=== PATIENT | female | born 1955 | race Caucasian/White ===

== ENCOUNTER 2018-02-03 17:57 | Emergency (ER) | payer OTHER ==
--- OUTSIDE RECORDS SUMMARY | 2018-02-03 18:05 | XMS REPORT | Continuity of Care Document ---
:1955 External Reference #:[id number] Author Name Brittany Choi PA Address [address] [place] [address] Care Team Providers Name Role Phone Ramon Rico M.D. Care Team Information Human Resources Specialist Unavailable Payers Type Date Identification Numbers Payment Provider Subscriber Effective: Policy Number: [id number] Jonas Brandon 2016 PayID: [id number] [address] [place] [address] Advance Directives Description No Information Available Problems Date Description Provider Status Onset: 03/21/2011 Arthropathy Brittany Choi PA Active Onset: 03/21/2011 Hypothyroidism Brittany Choi PA Active Onset: 03/21/2011 Essential hypertension Brittany Choi PA Active Onset: 03/21/2011 Hyperlipidemia Brittany Choi PA Active Onset: 03/21/2011 Obesity Ramon Rico M.D. 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 Pure hypercholesterolemia Brittany Choi PA Active Family History Date Family Member(s) Problem(s) Comments Father due to Aneurysm () Mother due to Brain cancer () Social History Type Date Description Comments Sex Unknown Marital Status Has been 2 times Lives With Spouse Lives With Son Pets 1 dog Work Status 09/2014 Disabled ETOH Use Rarely consumes alcohol Tobacco Use Reviewed: 12/31/15 Patient has never smoked 12/19/13 Recreational Drug Use Never Used Drugs Smoking Status Reviewed: 01/25/18 Patient has never smoked 12/19/13 Allergies, Adverse Reactions, Alerts Description No Known Drug Allergies Medications Medication Date Status Form Strength Qnty SIG Indications Ordering Provider Benzonatate 01/11/ Active Capsules 200mg 30caps one three R05 Ramon 2018 times a [facility] day as os, M.D. needed cough Levothyroxine 07/25/ Active Tablets 100mcg 30tabs 1 by mouth E03.9 Ramon Sodium 2018 every day [facility] os, M.D. Atorvastatin 04/26/ Active Tablets 80mg 90tabs take 1 Ramon Calcium 2012 tablet by [facility] mouth at os, M.D. bedtime Aspirin Adult 03/21/ Active Tablets DR 81mg 1 po qd Ramon Low Strength 2010 [place] os, M.D. Lisinopril-Hydr 03/21/ Active Tablets 20-12.5mg 90tabs take 1 Ramon ochlorothiazide 2010 tablet by [facility] mouth os, M.D. twice a day Azithromycin 01/05/ Hx Tablets 250mg 6tabs 2 now and J06.9 Ramon 2018 - 1 daily x [facility] 01/11/ 4 days os, M.D. 2018 Levothyroxine 07/25/ Hx Solution 100mcg 1 by mouth E03.9 Ramon Sodium 2018 - Rec every day [facility] 07/25/ os, M.D. 2018 Levothyroxine 07/25/ Hx Tablets 100mcg 90tabs take 1 E03.9 Ramon Sodium 2018 - tablet by [place] 01/11/ mouth once os, M.D. 2018 daily Levothyroxine 05/25/ Hx Tablets 88mcg 30tabs 1 by mouth E03.9 Ramon Sodium 2018 - every day [facility] 07/25/ os, M.D. 2018 Augmentin 03/15/ Hx Tablets 875-125mg 20tabs one twice J06.9 Ramon 2016 - a day [place] 01/10/ withfood os, M.D. 2017 Tylenol With 03/15/ Hx Tablets 300-30mg 28tabs one tablet R05 Ramon Codeine #3 2016 - 4 times a [place] 01/10/ day as os, M.D. 2017 needed for pain/cough Amoxicillin 03/07/ Hx Capsules 500mg 21caps 1 by mouth J06.9 Ramon 2015 - three [facility] 03/15/ times a os, M.D. 2015 day Colcrys 02/04/ Hx Tablets 0.6mg 3tabs 2 tablets M10.9 Ramon 2014 - initially [place] 03/07/ and then os, M.D. 2015 one tablet one hour later Amoxicillin/Cla 08/01/ Hx Tablets 875-125mg 20tabs 1 by mouth 461.0 Ramon sabillon 2014 - twice a [facility] Potassium 12/22/ day with os, M.D. 2014 food Tramadol HCL 10/30/ Hx Tablets 50mg 100tab take 1-2 Ramon 2013 - s tablets by [facility] 12/19/ mouth up os, M.D. 2014 to 4 times daily as needed for pain Vitamin D 10/28/ Hx 00136Mb 4units onbe q Ramon 2013 - weekly [facility] 12/19/ os, M.D. 2013 Tylenol With 10/22/ Hx 30unit 1 to 2 724.3 Ramon Codeine #3 2014 - s tablets [facility] 12/19/ every 4-6 os, M.D. 2014 hours for as needed for pain Klonopin 10/22/ Hx Tablets 1mg 2tabs one tablet 724.5 Ramon 2013 - hour prior [facility] 12/19/ to os, M.D. 2013 procedure and one tablet if needed prior to procedure Levothyroxine 10/22/ Hx Tablets 75mcg 90tabs take 1 E03.9 Ramon Sodium 2013 - tablet [facility] 05/25/ daily os, M.D. 2017 Ultram 07/23/ Hx Tablets 50mg 30tabs 1 to 2 848.8 Ramon 2013 - tablets [facility] 10/22/ twice a os, M.D. 2013 day or three times a day as needed pain Colcrys 05/13/ Hx Tablets 0.6mg 3tabs two 719.46 Ramon 2013 - tablets at [facility] 10/22/ onset of os, M.D. 2013 gout attack then repeat one pill one hour later Vitamin D 05/13/ Hx Capsules 21688Smdm 4caps take 1 790.6 Ramon 2013 - capsule by [facility] 07/14/ mouth once os, M.D. 2014 weekly Levothyroxine 05/13/ Hx Tablets 75mcg 30tabs 1 po qd 244.9 Ramon Sodium 2013 - [place] 10/22/ os, M.D. 2013 Amoxicillin 04/17/ Hx Tablets 875mg 20tabs 1 po bid 461.9 Ramon 2012 - [place] 05/07/ os, M.D. 2013 Naproxen 07/10/ Hx Tablets 500mg 60tabs Take One Ramon 2011 - Tablet By [facility] 07/14/ Mouth os, M.D. 2014 Twice A Day Tylenol With 05/30/ Hx #3 25unit one to two 786.2 Ramon Codeine #3 2012 - s tablets [facility] 05/07/ every six os, M.D. 2014 hour s as needed for cough and headache Mobic 03/21/ Hx Tablets 15mg 15tabs one qd Ramon 2010 - with food [facility] 05/07/ os, M.D. 2013 Amoxicillin 03/21/ Hx Tablets 875mg 20tabs 1 po bid Ramon 2010 - [place] 05/07/ os, M.D. 2013 Lipitor 03/21/ Hx Tablets 40mg 90tabs Take One Ramon 2010 - Tablet By [facility] 12/19/ Mouth os, M.D. 2013 Every Day Levothyroxine 03/21/ Hx Tablets 50mcg 30tabs Take One Ramon Sodium 2010 - Tablet By [place] 12/19/ Mouth os, M.D. 2013 Every Day Lisinopril-Hydr 03/21/ Hx Tablets 20-12.5mg 90tabs take one Ramon ochlorothiazide 2010 - tablet by [place] 01/11/ mouth os, M.D. 2017 twice a day Immunizations CPT Code Status Date Vaccine Reaction Lot # 09059 Given 01/10/2017 Influenza risk & benefits Flu Vac [id number] Vac,Quad,Split=>3 discussed Yrs 52807 Given 12/31/2015 Influenza risk & benefits flu Vac,Quad,Split=>3 discussed [id number] Yrs 87328 Given 12/31/2015 Prevnar 13 risk & benefits Prevnar 13 [id number] discussed 90238 Given 12/22/2014 Influenza risk & benefits Flu/vac>[id number] Vac,Quad,Split=>3 discussed Yrs 59472 Given 01/07/2009 Flu Triv Old Code 18499 Given 03/22/1999 Td- Toxoids Absorbed - Adult Vital Signs Date Vital Result Comment 01/11/2018 9:48am Weight 217.00 lb BP Systolic 118 mmHg BP Diastolic 82 mmHg Height 61 inches 5'1" Heart Rate 99 /min Body Temperature 98.7 F O2 % BldC Oximetry 93 % Respiratory Rate 18 /min BMI (Body Mass Index) 41.0 kg/m2 01/05/2018 9:33am Weight 217.00 lb BP Systolic 142 mmHg BP Diastolic 70 mmHg Heart Rate 112 /min Body Temperature 99.2 F O2 % BldC Oximetry 95 % room air Respiratory Rate 22 /min 08/14/2017 10:03am Weight 224.00 lb BP Systolic 134 mmHg BP Diastolic 80 mmHg 05/17/2017 10:39am Weight 223.00 lb BP Systolic 130 mmHg BP Diastolic 78 mmHg 03/15/2016 1:37pm Weight 219.00 lb BP Systolic 130 mmHg BP Diastolic 80 mmHg Body Temperature 99.2 F 03/07/2016 10:46am Weight 220.50 lb BP Systolic 140 mmHg BP Diastolic 90 mmHg Height 98.4 inches 8'2.40" BMI (Body Mass Index) 16.0 kg/m2 12/31/2015 9:33am Weight 220.00 lb BP Systolic 144 mmHg BP Diastolic 80 mmHg Height 59.8 inches 4'11.80" Heart Rate 70 /min Body Temperature 98.0 F Respiratory Rate 12 /min BMI (Body Mass Index) 43.2 kg/m2 02/04/2015 10:15am Weight 210.00 lb BP Systolic 112 mmHg BP Diastolic 68 mmHg 08/01/2014 9:42am Weight 210.00 lb BP Systolic 118 mmHg BP Diastolic 70 mmHg Body Temperature 99.4 F 07/14/2014 9:16am Weight 210.00 lb BP Systolic 112 mmHg BP Diastolic 70 mmHg 12/19/2013 11:47am Weight 206.00 lb BP Systolic 110 mmHg BP Diastolic 60 mmHg Height 59.6 inches 4'11.60" Heart Rate 70 /min Body Temperature 98.0 F Respiratory Rate 14 /min BMI (Body Mass Index) 40.8 kg/m2 10/22/2013 11:40am Weight 211.00 lb BP Systolic 118 mmHg BP Diastolic 74 mmHg 07/23/2013 10:26am Weight 216.00 lb BP Systolic 120 mmHg BP Diastolic 80 mmHg 05/13/2013 9:23am Weight 214.00 lb BP Systolic 126 mmHg BP Diastolic 80 mmHg Height 59.8 inches 4'11.80" BMI (Body Mass Index) 42.1 kg/m2 05/07/2013 11:22am Weight 218.00 lb BP Systolic 120 mmHg BP Diastolic 70 mmHg 04/17/2012 9:46am Weight 215.00 lb Body Temperature 98.8 F 05/30/2011 2:17pm Weight 212.00 lb BP Systolic 120 mmHg BP Diastolic 70 mmHg Body Temperature 98.3 F 03/21/2011 8:57am Weight 205.00 lb BP Systolic 118 mmHg BP Diastolic 78 mmHg Body Temperature 98.5 F Results Test Date Facility Test Result H/L Range Note Laboratory test 07/12/2017 [facility] TSH (Thyroid 7.21 mcIU/mL High 0.34-5.60 finding [phone] Stim Horm) Basic Metabolic 05/17/2017 [facility] Glucose 117 mg/dL High 74- 106 1 Panel [phone] BUN 21 mg/dL High 7-18 Creatinine 1.1 mg/dL 0.6-1.3 Glom Filtration Rate, Estimate 54 mL/min >60 If >60 mL/min >60 2 BUN/Creat 19.0 ratio Sodium 140 mmol/L 136-145 Potassium 4.0 mmol/L 3.5-5.1 Chloride 104 mmol/L 98-107 Carbon Dioxide 28 mmol/L 21-32 Anion Gap 8 mEq/L 8-16 Calcium 9.1 mg/dL 8.5-10.1 CBC No Diff 05/17/2017 [facility] White Blood Count 8.7 K/uL 3.1- 10.7 [phone] Red Blood Count 3.97 M/uL 3.90-5.40 Hemoglobin 12.6 gm/dL 11.6-15.8 Hematocrit 37.0 % 36.0-46.1 Mean Cell Volume 93.2 fl 80.9-99.0 Mean Corpuscular HGB 31.7 pg 25.9-32.7 Mean Corpuscular HGB Conc 34.1 g/dL 30.8-34.3 Platelet Count 261 K/uL 155-360 Red Cell Distri Width %CV 13.9 % 11.7-14.4 Mean Platelet Volume 10.4 fL 8.9-12.4 Lipid Profile 05/17/2017 [facility] Cholesterol 178 mg/dL <200 3 (Trig/Chol/HDL) [phone] Triglycerides 168 mg/dL High <150 4 HDL Cholesterol 41 mg/dL >40 5 LDL-Cholesterol 103 mg/dL < 100 6 Liver Function Panel 05/17/2017 [facility] Total Protein 8.0 g/dL 6.4-8.2 [phone] Albumin 3.4 g/dL 3.4-5.0 Globulin 4.6 g/dL High 1.9-4.3 Alb/Glob 0.7 ratio Bilirubin,Total 0.4 mg/dL 0.2-1.0 Bilirubin,Direct < 0.1 mg/dL 0.0-0.2 Bilirubin,Indirect 0.3 mg/dL 0.0-0.9 Sgot/Ast 25 U/L 15-37 SGPT/Alt 26 U/L 12-78 Alkaline Phosphatase 143 U/L High 45-117 Laboratory test 05/17/2017 [facility] Thyroid Stim 8.47 uIU/mL High 0.30-4.20 finding [phone] Hormone Laboratory test 01/13/2017 [facility] Pap, Thin <pending> finding Prep Basic Metabolic 01/10/2017 [facility] Glucose 115 mg/dL High 74- 106 7 Panel [phone] BUN 21 mg/dL High 7-18 Creatinine 1.1 mg/dL 0.6-1.3 Glom Filtration Rate, Estimate 54 mL/min >60 If >60 mL/min >60 8 BUN/Creat 19.0 ratio Sodium 140 mmol/L 136-145 Potassium 3.7 mmol/L 3.5-5.1 Chloride 105 mmol/L 98-107 Carbon Dioxide 26 mmol/L 21-32 Anion Gap 9 mEq/L 8-16 Calcium 9.0 mg/dL 8.5-10.1 Lipid Profile 01/10/2017 [facility] Cholesterol 193 mg/dL <200 9 (Trig/Chol/HDL) [phone] Triglycerides 147 mg/dL <150 10 HDL Cholesterol 41 mg/dL >40 11 LDL-Cholesterol 123 mg/dL < 100 12 Liver Function Panel 01/10/2017 [facility] Total Protein 7.7 g/dL 6.4-8.2 [phone] Albumin 3.4 g/dL 3.4-5.0 Globulin 4.3 g/dL 1.9-4.3 Alb/Glob 0.8 ratio Bilirubin,Total 0.4 mg/dL 0.2-1.0 Bilirubin,Direct < 0.1 mg/dL 0.0-0.2 Bilirubin,Indirect 0.3 mg/dL 0.0-0.9 Sgot/Ast 23 U/L 15-37 SGPT/Alt 29 U/L 12-78 Alkaline Phosphatase 139 U/L High 45-117 Laboratory 01/10/2017 [facility] Thyroid Stim 5.93 uIU/mL High 0.30 -4.20 test finding [phone] Hormone Laboratory 01/10/2017 [facility] LABORATORY 13 test finding ALLIA <SEE NOTE> Xray 01/18/2016 [facility] bilateral <pending> [address] [place] [place] [address] [phone] Laboratory 01/07/2016 [facility] Pap, Thin <pending> test finding Prep Laboratory 12/31/2015 [facility] LABORATORY 14 test finding ALLIA <SEE NOTE> Basic 12/31/2015 [facility] Glucose 105 mg/dL 74-106 15 Metabolic [phone] Panel BUN 19 mg/dL High 7-18 Creatinine 1.1 mg/dL 0.6-1.3 Glom Filtration Rate, Estimate 54 mL/min >60 If >60 mL/min >60 16 BUN/Creat 17.2 ratio Sodium 140 mmol/L 136-145 Potassium 4.2 mmol/L 3.5-5.1 Chloride 105 mmol/L 98-107 Carbon Dioxide 29 mmol/L 21-32 Anion Gap 6 mEq/L Low 8-16 Calcium 8.7 mg/dL 8.5-10.1 @[facility] Pat Id: [id number] @[facility] Req #: [id number] Is Patient Fasting? Fasting CBC Auto Diff 12/31/2015 [facility] White Blood Count 8.1 K/uL 3.1 -10.7 [phone] Red Blood Count 4.04 M/uL 3.90-5.40 Hemoglobin 12.9 gm/dL 11.6-15.8 Hematocrit 38.0 % 36.0-46.1 Mean Cell Volume 94.1 fl 80.9-99.0 Mean Corpuscular HGB 31.9 pg 25.9-32.7 Mean Corpuscular HGB Conc 33.9 g/dL 30.8-34.3 Platelet Count 246 K/uL 155-360 Red Cell Distri Width SD 45.2 fl 3-47 Red Cell Distri Width %CV 13.4 % 11.7-14.4 Mean Platelet Volume 10.7 fL 8.9-12.4 Neut% 70.9 % 40.4-72.8 Lymph % 20.5 % 17.0-46.1 [place] % 6.7 % 4.3-13.2 Eo% 1.4 % 0.0-6.6 Bas% 0.5 % 0.0-1.1 Neut# 5.73 K/uL 1.8-7.0 Lymph # 1.66 K/uL Low 1.8-7.0 [place] # 0.54 K/uL 0.3-0.9 Eos # 0.11 K/uL 0.0-0.5 Baso # 0.04 K/uL 0.0-0.1 @[facility] Pat Id: [id number] @[facility] Req #: [id number] Lipid Profile 12/31/2015 [facility] Cholesterol 206 mg/dL High < 200 17 (Trig/Chol/HDL) [phone] Triglycerides 135 mg/dL <150 18 HDL Cholesterol 44 mg/dL >40 19 LDL-Cholesterol 135 mg/dL < 100 20 @[facility] Pat Id: [id number] @[facility] Req #: [phone] Is Patient Fasting? Fasting Liver Function Panel 12/31/2015 [facility] Total Protein 8.1 g/dL 6.4-8.2 [phone] Albumin 3.5 g/dL 3.4-5.0 Globulin 4.6 g/dL High 1.9-4.3 Alb/Glob 0.8 ratio Bilirubin,Total 0.3 mg/dL 0.2-1.0 Bilirubin,Direct < 0.1 mg/dL 0.0-0.2 Bilirubin,Indirect 0.2 mg/dL 0.0-0.9 Sgot/Ast 23 U/L 15-37 SGPT/Alt 30 U/L 12-78 Alkaline Phosphatase 128 U/L High 45-117 @[facility] Pat Id: [id number] @[facility] Req #: [id number] Is Patient Fasting? Fasting Basic Metabolic 12/23/2014 [facility] [address] [facility] Sodium 137 mmol/L 133-145 Panel [phone] Potassium 4.6 mmol/L 3.5-5.0 Chloride 104 mmol/L 101-111 Co2 Carbon Dioxide 29 mmol/L 22-32 Anion Gap 4 mmol/L 2-11 Glucose 112 mg/dL High 70-100 Blood Urea Nitrogen 20 mg/dL 6-24 Creatinine 1.09 mg/dL High 0.51-0.95 BUN/Creatinine Ratio 18.3 8-20 Calcium 9.2 mg/dL 8.6-10.3 Egfr Non- 51.4 >60 Egfr 66.1 >60 21 Liver Function 12/23/2014 [facility] [address] [facility] Total Protein 7.0 g/dL 6.4-8.9 Tests [phone] Albumin 3.9 g/dL 3.2-5.2 Globulin 3.1 g/dL 2-4 Albumin/Globulin Ratio 1.3 1-3 Total Bilirubin 0.40 mg/dL 0.2-1.0 Direct Bilirubin 0.10 mg/dL 0.03-0.18 Indirect Bilirubin 0.3 mg/dL 0.3-1.0 Alkaline Phosphatase 112 U/L High 34-104 Alt 20 U/L 7-52 Ast 20 U/L 13-39 CBC W/Automated 12/23/2014 [facility] [address] [facility] White Blood 7.6 10^3/uL 4.8-10.8 Diff [phone] Count Red Blood Count 3.79 10^6/uL Low 4.0-5.4 Hemoglobin 12.0 g/dL 12.0-16.0 Hematocrit 36 % 35-47 Mean Corpuscular Volume 94 fL 80-97 Mean Corpuscular Hemoglobin 32 pg High 27-31 Mean Corpuscular HGB Conc 34 g/dL 31-36 Red Cell Distribution Width 14 % 10.5-15 Platelet Count 248 10^3/uL 150-450 Mean Platelet Volume 8 um3 7.4-10.4 Abs Neutrophils 5.4 10^3/uL 1.5-7.7 Abs Lymphocytes 1.4 10^3/uL 1.0-4.8 Abs Monocytes 0.5 10^3/uL 0-0.8 Abs Eosinophils 0.2 10^3/uL 0-0.6 Abs Basophils 0.1 10^3/uL 0-0.2 Abs Nucleated RBC 0 10^3/uL Granulocyte % 71.2 % 38-83 Lymphocyte % 18.8 % Low 25-47 Monocyte % 6.8 % 1-9 Eosinophil % 2.2 % 0-6 Basophil % 1.0 % 0-2 Nucleated Red Blood Cells % 0 Laboratory test 12/23/2014 [facility] [address] [facility] Uric Acid 6.1 mg/dL 2.3-6.6 finding [phone] TSH (Thyroid Stimulating Horm) 3.67 ?IU/mL 0.34-5.60 LDL Cholesterol Direct 132 mg/dL 22 Laboratory test 12/22/2014 [facility] Cytology SEE RESULT 23 finding [phone] Interface Order BELOW Basic Metabolic 12/19/2013 [facility] Glucose 78 mg/dL 74-106 Panel [phone] BUN 22 mg/dL High 7-18 Creatinine 1.2 mg/dL 0.6-1.3 Glom Filtration Rate, Estimate 49 mL/min >60 If 59 mL/min >60 24 BUN/Creat 18.3 ratio Sodium 142 mmol/L 136-145 Potassium 3.7 mmol/L 3.5-5.1 Chloride 107 mmol/L 98-107 Carbon Dioxide 26 mmol/L 21-32 Anion Gap 13 mEq/L 8-16 Calcium 9.3 mg/dL 8.5-10.1 CBS W/Automated Diff 12/19/2013 [facility] White Blood 9.4 K/uL 3.1-10.7 [phone] Count Red Blood Count 3.66 M/uL Low 3.90-5.40 Hemoglobin 11.7 gm/dL 11.6-15.8 Hematocrit 35.3 % Low 36.0-46.1 Mean Cell Volume 96.4 fl 80.9-99.0 Mean Corpuscular HGB 32.0 pg 25.9-32.7 Mean Corpuscular HGB Conc 33.1 g/dL 30.8-34.3 Platelet Count 279 K/uL 155-360 Red Cell Distri Width SD 47.0 fl 3-47 Red Cell Distri Width %CV 13.9 % 11.7-14.4 Mean Platelet Volume 10.3 fL 8.9-12.4 Neut% 64.5 % 40.4-72.8 Lymph % 24.9 % 17.0-46.1 [place] % 7.8 % 4.3-13.2 Eo% 2.4 % 0.0-6.6 Bas% 0.4 % 0.0-1.1 Neut# 6.07 K/uL 1.0-7.0 Lymph # 2.34 K/uL 0.8-3.4 [place] # 0.73 K/uL 0.3-0.9 Eos # 0.23 K/uL 0.0-0.5 Baso # 0.04 K/uL 0.0-0.1 Laboratory test 12/19/2013 [facility] TSH Reflex 1.40 uIU/mL 0.36- 3.74 25 finding [phone] FT4 and/or FT3 Vitamin D,25-Hydroxy 33.8 ng/mL 30.0-100.0 26 Laboratory test 12/19/2013 [facility] ThinPrep Pap: See Note 27 finding [phone] Cervix/Endocx Basic Metabolic 10/22/2013 [facility] Glucose 77 mg/dL 76-115 Panel [phone] BUN 31 mg/dL High 5-23 Creatinine 1.1 mg/dL 0.5-1.4 Glom Filtration Rate, Estimate 54 mL/min >60 If >60 mL/min >60 28 BUN/Creat 28.1 ratio Sodium 141 mmol/L 136-145 Potassium 4.1 mmol/L 3.5-5.1 Chloride 107 mmol/L 98-107 Carbon Dioxide 26 mEq/L 18-29 Anion Gap 12 mEq/L 8-16 Calcium 9.5 mg/dL 8.5-10.1 Laboratory 10/22/2013 [facility] Vitamin 21.4 Low 30.0-100.0 29 test finding [phone] D,25-Hydroxy ng/mL TSH Reflex FT4 and/or FT3 0.50 uIU/mL 0.49-4.67 30 Basic Metabolic Panel 05/07/2013 [facility] Glucose 79 mg/dL 76- 115 [phone] BUN 22 mg/dL 5-23 Creatinine 1.0 mg/dL 0.5-1.4 Glom Filtration Rate, Estimate >60 mL/min >60 If >60 mL/min >60 31 BUN/Creat 22.0 ratio Sodium 138 mmol/L 136-145 Potassium 3.9 mmol/L 3.5-5.1 Chloride 103 mmol/L 98-107 Carbon Dioxide 29 mEq/L 18-29 Anion Gap 10 mEq/L 8-16 Calcium 9.4 mg/dL 8.5-10.1 CBC W/Automated Diff 05/07/2013 [facility] White Blood 8.0 K/uL 3.1-10.7 [phone] Count Red Blood Count 4.01 M/uL 3.90-5.40 Hemoglobin 13.2 gm/dL 11.6-15.8 Hematocrit 38.4 % 36.0-46.1 Mean Cell Volume 95.8 fl 80.9-99.0 Mean Corpuscular HGB 32.9 pg High 25.9-32.7 Mean Corpuscular HGB Conc 34.4 g/dL High 30.8-34.3 Platelet Count 259 K/uL 155-360 Red Cell Distri Width SD 46.4 fl 3-47 Red Cell Distri Width %CV 13.5 % 11.7-14.4 Mean Platelet Volume 10.4 fL 8.9-12.4 Neut% 62.7 % 40.4-72.8 Lymph % 25.4 % 17.0-46.1 [place] % 8.3 % 4.3-13.2 Eo% 3.1 % 0.0-6.6 Bas% 0.5 % 0.0-1.1 Neut# 5.00 K/uL 1.0-7.0 Lymph # 2.03 K/uL 0.8-3.4 [place] # 0.66 K/uL 0.3-0.9 Eos # 0.25 K/uL 0.0-0.5 Baso # 0.04 K/uL 0.0-0.1 Laboratory test 05/07/2013 [facility] TSH Reflex 9.26 uIU/mL High 0.49-4.67 32 finding [phone] FT4 and/or FT3 Uric Acid 4.7 mg/dL 2.1-7.4 Vitamin D,25-Hydroxy 15.5 ng/mL Low 30.0-100.0 33 CK 150 U/L 26-190 Free T4 1.32 ng/dL 0.71-1.85 Liver Function 05/07/2013 [facility] Total Protein 8.2 g/dL High 6.3-8.0 Tests [phone] Albumin 4.1 g/dL 3.5-5.0 Globulin 4.1 g/dL 1.9-4.3 Alb/Glob 1.0 ratio Bilirubin,Total 0.5 mg/dL 0.2-1.2 Bilirubin,Direct 0.1 mg/dL 0.1-0.4 Bilirubin,Indirect 0.4 mg/dL 0.0-0.9 Sgot/Ast 22 U/L 16-40 SGPT/Alt 30 U/L 30-65 Alkaline Phosphatase 106 U/L 50-136 LDL Cholesterol Profile 05/07/2013 [facility] Cholesterol 188 mg/dL 120-200 [phone] Triglycerides 246 mg/dL High 16-231 HDL Cholesterol 36 mg/dL 29-83 LDL-Cholesterol 103 mg/dL 62-185 Laboratory test 05/07/2013 [facility] Sedimentation 57 mm/hr High 0 -30 finding [phone] Rate Laboratory test 04/17/2012 [facility] TSH Reflex FT4 7.73 High 0.49 -4.6 34 finding [phone] and/or FT3 uIU/mL 7 Free T4 0.90 ng/dL 0.71-1.85 Liver Function Tests 04/17/2012 [facility] Total Protein 7.8 g/dL 6.3-8.0 [phone] Albumin 3.7 g/dL 3.5-5.0 Globulin 4.1 g/dL 1.9-4.3 Alb/Glob 0.9 ratio Bilirubin,Total 0.4 mg/dL 0.2-1.2 Bilirubin,Direct < 0.1 mg/dL Low 0.1-0.4 Bilirubin,Indirect 0.3 mg/dL 0.0-0.9 Sgot/Ast 25 U/L 16-40 SGPT/Alt 37 U/L 30-65 Alkaline Phosphatase 94 U/L 50-136 LDL Cholesterol 04/17/2012 [facility] Cholesterol 206 mg/dL High 120-200 Profile [phone] Triglycerides 207 mg/dL 16-231 HDL Cholesterol 42 mg/dL 29-83 LDL-Cholesterol 123 mg/dL 62-185 CBS W/Automated Diff 04/17/2012 [facility] White Blood 6.5 K/uL 3.1-10.7 [phone] Count Red Blood Count 4.06 M/uL 3.90-5.40 Hemoglobin 13.1 gm/dL 11.6-15.8 Hematocrit 38.6 % 36.0-46.1 Mean Cell Volume 95.1 fl 80.9-99.0 Mean Corpuscular HGB 32.3 pg 25.9-32.7 Mean Corpuscular HGB Conc 33.9 g/dL 30.8-34.3 Platelet Count 243 K/uL 155-360 Red Cell Distri Width SD 45.9 fl 3-47 Red Cell Distri Width %CV 13.6 % 11.7-14.4 Mean Platelet Volume 10.4 fL 8.9-12.4 Neut% 65.8 % 40.4-72.8 Lymph % 22.1 % 17.0-46.1 [place] % 9.0 % 4.3-13.2 Eo% 2.5 % 0.0-6.6 Bas% 0.6 % 0.0-1.1 Neut# 4.30 K/uL 1.0-7.0 Lymph # 1.44 K/uL 0.8-3.4 [place] # 0.59 K/uL 0.3-0.9 Eos # 0.16 K/uL 0.0-0.5 Baso # 0.04 K/uL 0.0-0.1 Basic Metabolic Panel 04/17/2012 [facility] Glucose 84 mg/dL 76- 115 [phone] BUN 16 mg/dL 5-23 Creatinine 0.9 mg/dL 0.5-1.4 Glom Filtration Rate, Estimate >60 mL/min >60 If >60 mL/min >60 35 BUN/Creat 17.7 ratio Sodium 142 mmol/L 136-145 Potassium 3.9 mmol/L 3.5-5.1 Chloride 106 mmol/L 98-107 Carbon Dioxide 29 mEq/L 18-29 Anion Gap 11 mEq/L 8-16 Calcium 9.3 mg/dL 8.5-10.1 1 E78.5,E03.9,I.10 2 Note: Persistent reduction for 3 months or more in an eGFR <60 mL/min/1.73 m2 defines CKD. Patients with eGFR values >/=60 mL/min/1.73 m2 may also have CKD if evidence of persistent proteinuria is present. The original MDRD equation for estimated GFR is not valid for patients less than 18 years of age. Additional information may be found at www.[email or web address]. 3 Reference Guidelines*: Desirable: ........... < 200 mg/dL Borderline High: ..... 200-239 mg/dL High: ................ >=240 mg/dL * The National Cholesterol Education Program (NCEP) 4 Reference Guidelines*: Normal: ............. < 150 mg/dL Borderline High: .... 150-199 mg/dL High: ............... 200-499 mg/dL Very High: .......... > 500 mg/dL * Source: National Cholesterol Education Program (NCEP) 5 Reference Guidelines*: Low HDL: ..... < 40 mg/dL Normal: ..... 40-60 mg/dL Desirable: ... > 60 mg/dL *The National Cholesterol Education Program(NCEP) 6 Reference Guidelines*: Optimal:........... <100 mg/dL Near Optimal....... 100-129 mg/dL Borderline High.... 130-159 mg/dL High............... 160-189 mg/dL Very High.......... >=190 mg/dL * Source: National Cholesterol Education Program (NCEP) 7 E78.5,E03.9, I.10 8 Note: Persistent reduction for 3 months or more in an eGFR <60 mL/min/1.73 m2 defines CKD. Patients with eGFR values >/=60 mL/min/1.73 m2 may also have CKD if evidence of persistent proteinuria is present. The original MDRD equation for estimated GFR is not valid for patients less than 18 years of age. Additional information may be found at www.[email or web address]. 9 Reference Guidelines*: Desirable: ........... < 200 mg/dL Borderline High: ..... 200-239 mg/dL High: ................ >=240 mg/dL * The National Cholesterol Education Program (NCEP) 10 Reference Guidelines*: Normal: ............. < 150 mg/dL Borderline High: .... 150-199 mg/dL High: ............... 200-499 mg/dL Very High: .......... > 500 mg/dL * Source: National Cholesterol Education Program (NCEP) 11 Reference Guidelines*: Low HDL: ..... < 40 mg/dL Normal: ..... 40-60 mg/dL Desirable: ... > 60 mg/dL *The National Cholesterol Education Program(NCEP) 12 Reference Guidelines*: Optimal:........... <100 mg/dL Near Optimal....... 100-129 mg/dL Borderline High.... 130-159 mg/dL High............... 160-189 mg/dL Very High.......... >=190 mg/dL * Source: National Cholesterol Education Program (NCEP) 13 [facility]. [address] [place] [id number] GYNECOLOGIC CYTOLOGY REPORT Accession Number: [id number] Source of Specimen(s): A: SurePath Vaginal / Cervical Pap Smear - One Vial Clinical Diagnosis and History: Date of Last Menstrual Period: age 51 Menstrual History: Post-menopausal Other Clinical Conditions: Last Pap Smear: 12/17 normal REFLEX TO HPV ASSAY IF RESULTS OF THIS PAP ARE ASCUS Specimen Adequacy SATISFACTORY FOR EVALUATION SCANT/NO ENDOCERVICAL COMPONENT General Categorization NEGATIVE FOR INTRAEPITHELIAL LESION OR MALIGNANCY Interpretation NEGATIVE FOR INTRAEPITHELIAL LESION OR MALIGNANCY Reported: 01/12/2017 Electronically Signed Out By Carol LAM(ASCP) [facility] [address] [place] [address] GYNECOLOGIC CYTOLOGY REPORT Accession Number: [id number] Source of Specimen(s): A: SurePath Cervical / Endocervical Pap Smear - One Vial Clinical Diagnosis and History: Date of Last Menstrual Period: 1998 Other Clinical Conditions: Last Pap Smear: 12/16 wnl REFLEX TO HPV ASSAY IF RESULTS OF THIS PAP ARE ASCUS Specimen Adequacy Satisfactory for evaluation Scant/no endocervical component General Categorization Negative for intraepithelial lesion or malignancy Interpretation NEGATIVE FOR INTRAEPITHELIAL LESION OR MALIGNANCY Reported: 01/06/2016 Electronically Signed Out By Carol LAM(ASCP) [facility] dol 15 Z00.01 M10.9 E78.5 I10 16 Note: Persistent reduction for 3 months or more in an eGFR <60 mL/min/1.73 m2 defines CKD. Patients with eGFR values >/=60 mL/min/1.73 m2 may also have CKD if evidence of persistent proteinuria is present. The original MDRD equation for estimated GFR is not valid for patients less than 18 years of age. Additional information may be found at www.kdoqi.org. 17 Reference Guidelines*: Desirable: ........... < 200 mg/dL Borderline High: ..... 200-239 mg/dL High: ................ >=240 mg/dL * The National Cholesterol Education Program (NCEP) 18 Reference Guidelines*: Normal: ............. < 150 mg/dL Borderline High: .... 150-199 mg/dL High: ............... 200-499 mg/dL Very High: .......... > 500 mg/dL * Source: National Cholesterol Education Program (NCEP) 19 Reference Guidelines*: Low HDL: ..... < 40 mg/dL Normal: ..... 40-60 mg/dL Desirable: ... > 60 mg/dL *The National Cholesterol Education Program(NCEP) 20 Reference Guidelines*: Optimal:........... <100 mg/dL Near Optimal....... 100-129 mg/dL Borderline High.... 130-159 mg/dL High............... 160-189 mg/dL Very High.......... >=190 mg/dL * Source: National Cholesterol Education Program (NCEP) 21 Because ethnic data is not always readily available, this report includes an eGFR for both -Americans and non- Americans. The National Kidney Disease Education Program (NKDEP) does not endorse the use of the MDRD equation for patients that are not between the ages of 18 and 70, are , have extremes of body size, muscle mass, or nutritional status, or are non- or non-. According to the National Kidney Foundation, irrespective of diagnosis, the stage of the disease is based on the level of kidney function: Stage Description GFR(mL/min/1.73 m(2)) 1 Kidney damage with normal or decreased GFR 90 2 Kidney damage with mild decrease in GFR 60-89 3 Moderate decrease in GFR 30-59 4 Severe decrease in GFR 15-29 5 Kidney failure <15 (or dialysis) 22 Desirable: <100 mg/dL Near Optimal: 100-129 mg/dL Borderline High: 130-159 mg/dL High: 160-189 mg/dL Very High: >189 mg/dL 23 SEE RESULT BELOW Name: LINDY BRANDON : [address]: Brittany NAM Acct: [id number] Unit: [id number] AGE: 59 Location: [facility] Re12/22/14 SEX: F Status: REG REF SPEC: [id number] CJ: 12/22/14-[address] [facility] [address]: Brittany NAM REQ: [id number] RECD: 12/23/14 STATUS: AMELIA STORM DR: [facility], Lab _ ORDERED: IMAGE ANALYSIS FINAL DIAGNOSIS Negative for Intraepithelial lesion or Malignancy A. Ectocervical/Endocervical Specimen Adequacy: Satisfactory of evaluation Transformation zone component identified Patient Information: HPV: Thin Layer Pap Test w/reflex to high risk HPV RNA testing when ASCUS Actual Specimen Date: 12/22/14 LMP If Unknown: 1998 ?: N Post Menopausal?: Y Hysterectomy?: N Previous Abnormal Pap Smears?:N Signed (signature on file) GENARO Lloyd (ASCP) 12/24 5666 This Pap test was evaluated with the assistance of the ThinPrep Test Imaging System. Due to cytologic findings at the bridal consultant microscope, comprehensive manual rescreening by a Sign Painter Apprentice may be required. The Pap Smear is a screening test designed to aid in the detection of premalignant and malignant conditions of the uterine cervix. It is not a diagnostic procedure and should not be used as the sole means of detecting cervical cancer. Both false- positive and false- negative reports do occur. Depending on your risk status, a Pap smear should be obtained and evaluated every 1-3 years. END OF REPORT * ML=Testing performed at Main Lab DEPARTMENT OF PATHOLOGY, [address] [place] [address] Kenneth Garcia M.D. Director [facility] # [id number] 24 Note: Persistent reduction for 3 months or more in an eGFR <60 mL/min/1.73 m2 defines CKD. Patients with eGFR values >/=60 mL/min/1.73 m2 may also have CKD if evidence of persistent proteinuria is present. The original MDRD equation for estimated GFR is not valid for patients less than 18 years of age. Additional information may be found at www.kdoqi.org. 25 QUERY: Reflex add FT3? Y QUERY: Reflex add FT4? Y 26 Vitamin D deficiency has been defined by the [place] of [employer] and an Endocrine Society practice guideline as a level of serum 25-OH vitamin D less than 20 ng/mL (1,2). The Endocrine Society went on to further define vitamin D insufficiency as a level between 21 and 29 ng/mL (2). 1. IOM ([place] of [employer]). 2010. Dietary reference intakes for calcium and D. [place]: The National Academies Press. 2. Ap MF, Jose NC, Morenita-Josef WARREN, et al. Evaluation, treatment, and prevention of vitamin D deficiency: an Endocrine Society clinical practice guideline. JCEM. 2010; 96(7):1911-30. Performed at: RN - [facility] [address] [id number] Die Technician: Heidy House MD, Phone: [phone] CYTOLOGY SCREENER - CHILD LIFE THERAPIST @ 05/14 Screened by: Tamiko Rabago [facility](ASCP) PAP: FINAL REPORT SPECIMEN ADEQUACY: SPECIMEN SATISFACTORY FOR INTERPRETATION ADEQUATE ENDOCERVICAL/TRANSFORMATION ZONE NOTED INTERPRETATION: NEGATIVE FOR INTRAEPITHELIAL LESION OR MALIGNANCY COMMENT: THINPREP PREPARED PAP SLIDE # Prepared in the Cytology laboratory from the ThinPrep sample is 1 ThinPrep smear. PAP ACCESSI QUESTIONNAIRE 04/12 PERTINENT CLINICAL HISTORY FOR PAP (CHILD LIFE THERAPIST) CYTOLOGY (Check all that apply): ? Post ? Menopause? Y LMP date: 1999 Post Hysterectomy? Is cervix present? Y If patient had related surgical procedure: Related Therapy: Significant Clinical History: V72.31 DISCLAIMER: The Pap smear is a screening test and not a diagnostic procedure. False negative and false positive results can and do occur for a number of reasons. Regular screening provides an aid in detecting treatable cervical abnormalities, but should not be used as the only means for detecting cervical dysplasia and carcinoma. Signed Electronically signed TAMIKO RABAGO 12/20/13 1006 28 Note: Persistent reduction for 3 months or more in an eGFR <60 mL/min/1.73 m2 defines CKD. Patients with eGFR values >/=60 mL/min/1.73 m2 may also have CKD if evidence of persistent proteinuria is present. The original MDRD equation for estimated GFR is not valid for patients less than 18 years of age. Additional information may be found at www.kdoqi.org. 29 Vitamin D deficiency has been defined by the [place] of [employer] and an Endocrine Society practice guideline as a level of serum 25-OH vitamin D less than 20 ng/mL (1,2). The Endocrine Society went on to further define vitamin D insufficiency as a level between 21 and 29 ng/mL (2). 1. IOM ([place] [employer]). 2010. Dietary reference intakes for calcium and D. [place]: The National Academies Press. 2. Jose Lopez, Zari WARREN, et al. Evaluation, treatment, and prevention of vitamin D deficiency: an Endocrine Society clinical practice guideline. JCEM. 2010; 96(7):1911-30. Performed at: RN - [facility] [address] [id number] Die Technician: Heidy House MD, Phone: [phone] QUERY: Reflex add FT3? QUERY: Reflex add FT4? Y 31 Note: Persistent reduction for 3 months or more in an eGFR <60 mL/min/1.73 m2 defines CKD. Patients with eGFR values >/=60 mL/min/1.73 m2 may also have CKD if evidence of persistent proteinuria is present. The original MDRD equation for estimated GFR is not valid for patients less than 18 years of age. Additional information may be found at www.kdoqi.org. 32 QUERY: Reflex add FT3? N QUERY: Reflex add FT4? Y 33 Vitamin D deficiency has been defined by the [place] [employer] and an Endocrine Society practice guideline as a level of serum 25-OH vitamin D less than 20 ng/mL (1,2). The Endocrine Society went on to further define vitamin D insufficiency as a level between 21 and 29 ng/mL (2). 1. IOM ([place] [employer]). 2010. Dietary reference intakes for calcium and D. [place]: The National Academies Press. 2. Jose Lopez, Zari WARREN, et al. Evaluation, treatment, and prevention of vitamin D deficiency: an Endocrine Society clinical practice guideline. JCEM. 2010; 96(7):2401-30. Performed at: RN - [facility] [address] [id number] Die Technician: Heidy House MD, Phone: [phone] QUERY: Add FT3 if TSH abnormal? FT3 QUERY: Add FT4 if TSH Abnormal? FT4 Y 35 Note: Persistent reduction for 3 months or more in an eGFR <60 mL/min/1.73 m2 defines CKD. Patients with eGFR values >/=60 mL/min/1.73 m2 may also have CKD if evidence of persistent proteinuria is present. The original MDRD equation for estimated GFR is not valid for patients less than 18 years of age. Additional information may be found at www.kdoqi.org. Procedures Date Code Description Status 01/24/2017 [id number] Mammogram Completed 12/22/2014 38314 Snellen Only Vison Completed 12/22/2014 92226 Audiogram, Screen Only Pure Tone Completed 12/19/2013 86141 Snellen Only Vison Completed 12/19/2013 24126 EKG Completed 12/19/2013 05555 Audiogram, Screen Only Pure Tone Completed 12/02/2013 [id number] Bone Mineral Density Test Completed Encounters Type Date Location Provider Dx Diagnosis Office Visit 01/11/2018 9:30a Main Office Brittany Choi PA Z00.01 Encounter for general adult medical exam w abnormal findings R05 Cough Z12.31 Encntr screen mammogram for malignant neoplasm of breast Z12.12 Encounter for screening for malignant neoplasm of rectum E03.9 Hypothyroidism, unspecified Office Visit 01/05/2018 9:30a Main Office Ramon Rico J06.9 Acute upper M.D. respiratory infection, unspecified Office Visit 08/14/2017 10:15a Main Office Brittany Choi PA E78.5 Hyperlipidemia, unspecified E03.9 Hypothyroidism, unspecified I10 Essential (primary) hypertension Office Visit 05/17/2017 10:45a Main Office Brittany Choi PA E78.5 Hyperlipidemia, unspecified E03.9 Hypothyroidism, unspecified I10 Essential (primary) hypertension M19.90 Unspecified osteoarthritis, unspecified site Office Visit 01/10/2017 10:30a Main Office Brittany Choi PA Z12.31 Encntr screen mammogram for malignant neoplasm of breast E78.5 Hyperlipidemia, unspecified E03.9 Hypothyroidism, unspecified I10 Essential (primary) hypertension 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) w abnormal findings E03.9 Hypothyroidism, unspecified E78.4 Other hyperlipidemia M19.90 Unspecified osteoarthritis, unspecified site Z12.31 Encntr screen mammogram for malignant neoplasm of breast FLU V04.81 Need for Prophylactic Vaccination & Inoculation/Influ Z12.12 Encounter for screening for malignant neoplasm of rectum Office Visit 08/01/2014 10:00a Main Office Brittany Choi PA 465.9 URI Upper Respiratory Infections Acute Unspec Sites 461.0 Sinusitis Acute Maxillary Office Visit 07/14/2014 9:15a Main Office Brittany Choi PA 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 716.90 Arthropathy Unspec Site Unspec 781.2 Gait Abnormality Office Visit 12/19/2013 11:30a Main Office Brittany Choi PA 244.9 Hypothyroidism Other Unspec 272.4 Hyperlipidemia Other Unspec 401.9 Hypertension Unspec 724.5 Backache Unspec 716.90 Arthropathy Unspec Site Unspec 724.3 Sciatica 794.31 Electrocardiogram (ECG) (EKG) Abnormal V72.31 Routine X Ray Equipment Tester Examination V76.12 Screening Mammogram Malig Yinka Other V76.41 Screening Malignant Neoplasm Rectum V49.81 Postmenopausal Status Asymptomatic (Age-Related,Natural) V72.83 Examination Preoperative Other Spec Office Visit 10/22/2013 11:00a Main Office Brittany Choi PA 244.9 Hypothyroidism Other Unspec 724.5 Backache Unspec 716.90 Arthropathy Unspec Site Unspec 724.3 Sciatica Office Visit 07/23/2013 10:30a Main Office Brittany Choi PA 724.5 Backache Unspec 848.8 Sprains & Strains Other Spec Sites Office Visit 05/13/2013 9:15a Main Office Brittany Choi PA 716.90 Arthropathy Unspec Site Unspec 244.9 Hypothyroidism Other Unspec 719.46 Pain Joint Lower Leg 790.6 Abnormal Blood Chemistry Other 274.9 Gout Unspec Office Visit 05/07/2013 11:00a Main Office Brittany Choi PA 716.90 Arthropathy Unspec Site Unspec 244.9 Hypothyroidism Other Unspec 719.46 Pain Joint Lower Leg Office Visit 04/17/2012 9:15a Main Office Brittany Choi PA 465.9 URI Upper Respiratory Infections Acute Unspec Sites 461.9 Sinusitis Acute Unspec 244.9 Hypothyroidism Other Unspec 401.9 Hypertension Unspec 716.90 Arthropathy Unspec Site Unspec Office Visit 05/30/2011 2:10p Main Office Brittany Choi PA 465.9 URI Upper Respiratory Infections Acute Unspec Sites 786.2 Cough 716.90 Arthropathy Unspec Site Unspec 729.1 Myalgia & Myositis Unspec Office Visit 03/21/2011 9:00a Main Office Brittany Choi PA 465.9 URI Upper Respiratory Infections Acute Unspec Sites 461.9 Sinusitis Acute Unspec Office Visit 01/27/2011 9:15a Main Office Brittany Choi PA 465.9 URI Upper Respiratory Infections Acute Unspec Sites 786.2 Cough Office Visit 12/27/2010 9:15a Main Office Brittany Choi PA 716.90 Arthropathy Unspec Site Unspec 244.9 Hypothyroidism Other Unspec 401.9 Hypertension Unspec 272.4 Hyperlipidemia Other Unspec Office Visit 12/22/2010 3:30p Main Office Brittany Choi PA 465.9 URI Upper Respiratory Infections Acute Unspec Sites Office Visit 09/13/2010 9:00a Main Office Brittany Choi PA 272.4 Hyperlipidemia Other Unspec 244.9 Hypothyroidism Other Unspec 716.90 Arthropathy Unspec Site Unspec 401.1 Hypertension Benign Office Visit 07/30/2010 10:00a Main Office Brittany Choi PA 695.89 Erythematous Conditions Other Office Visit 06/28/2010 9:45a Main Office Brittany Choi PA 465.9 URI Upper Respiratory Infections Acute Unspec Sites 461.9 Sinusitis Acute Unspec 466.0 Bronchitis Acute 786.2 Cough Office Visit 05/14/2010 8:45a Main Office Brittany Choi PA 401.1 Hypertension Benign 272.4 Hyperlipidemia Other Unspec 244.9 Hypothyroidism Other Unspec 716.90 Arthropathy Unspec Site Unspec Office Visit 08/28/2009 10:30a Main Office Brittany Choi PA 465.9 URI Upper Respiratory Infections Acute Unspec Sites 461.9 Sinusitis Acute Unspec Office Visit 08/05/2009 11:45a Main Office Brittany Choi PA 465.9 URI Upper Respiratory Infections Acute Unspec Sites 462 Pharyngitis Acute Office Visit 04/08/2009 1:30p Main Office Brittany Choi PA 244.9 Hypothyroidism Other Unspec 401.1 Hypertension Benign 272.4 Hyperlipidemia Other Unspec 716.90 Arthropathy Unspec Site Unspec Office Visit 01/07/2009 2:00p Main Office Brittany Choi PA 244.9 Hypothyroidism Other Unspec 272.4 Hyperlipidemia Other Unspec 401.1 Hypertension Benign 716.90 Arthropathy Unspec Site Unspec V04.81 Need For Prophylactic Vaccination & Inoculation/Influenza Office Visit 07/24/2008 1:15p Main Office Brittany Choi PA 465.9 URI Upper Respiratory Infections Acute Unspec Sites 461.9 Sinusitis Acute Unspec 244.9 Hypothyroidism Other Unspec 272.4 Hyperlipidemia Other Unspec Office Visit 04/25/2008 10:45a Main Office Brittany Choi PA 461.9 Sinusitis Acute Unspec 465.9 URI Upper Respiratory Infections Acute Unspec Sites Office Visit 02/21/2008 11:00a Main Office Brittany Choi PA 079.99 Viral Infection Unspec Office Visit 12/25/2007 3:00p Main Office Brittany Choi PA 401.9 Hypertension Unspec 272.4 Hyperlipidemia Other Unspec 716.90 Arthropathy Unspec Site Unspec 244.9 Hypothyroidism Other Unspec Office Visit 07/09/2007 1:30p Main Office Brittany Choi PA 465.9 URI Upper Respiratory Infections Acute Unspec Sites 461.9 Sinusitis Acute Unspec 786.2 Cough 401.9 Hypertension Unspec Office Visit 06/07/2007 11:00a Main Office Brittany Choi PA 465.9 URI Upper Respiratory Infections Acute Unspec Sites 461.9 Sinusitis Acute Unspec 716.90 Arthropathy Unspec Site Unspec 726.71 Bursitis Or Tendinitis Achilles Office Visit 04/18/2007 9:45a Main Office Brittany Choi PA 558.9 Gastroenteritis & Colitis Noninfectious Other 787.91 Diarrhea Office Visit 03/21/2007 2:30p Main Office Brittany Choi PA 465.9 URI Upper Respiratory Infections Acute Unspec Sites 466.0 Bronchitis Acute Plan of Treatment Future Appointment(s):04/12/2018 9:00 am - Brittany Choi PA at Main [id number] - Brittany Choi PAZ00.01 Encounter for general adult medical examination with abnormaNew Labs:Surepath, Ordered: 01/11/18R05 CoughNew Medication: Benzonatate 200 mg - one three times a day as needed mbrzjO79.31 Encounter for screening mammogram for malignant neoplasm ofZ12.12 Encounter for screening for malignant neoplasm of jubxplJ89.9 Hypothyroidism, unspecifiedNew Labs:Basic Metabolic Panel, Ordered: 01/11/18CBC Auto Diff, Ordered: 01/11/18Lipid Profile (Trig/Chol/HDL), Ordered: 01/11/18Liver Function Panel, Ordered: 01/11/18TSH ( Thyroid Stim Horm), Ordered: 01/11/18
[2018-02-03] MEDS ORDERED: predniSONE TAB* 20 MG PO ONE (18:28)
[2018-02-03] MEDS ORDERED: Albuterol 2.5 MG/3 ML NEB.SOL* (0.083%) INH ONE (18:29)
[2018-02-03] MEDS ORDERED: Ipratropium 0.5MG/2.5ML NEB* 0.5 MG/2.5 ML NEB.SOLN INH ONE (18:29)
--- NOTE | 2018-02-03 18:49 | UC ---
Respiratory Complaint HPI - HPI Summary HPI Summary: 3 weeks of cough, congestion, sinus pressure, rhinitis, headache. Saw PCP at onset and was treated with Z-Richard. Fletcher a little bit better but symptoms did not completely resolve and now are worsening. She is complaining of inability to take a deep breath and has shortness of breath with even minimal exertion. Arrives with O2 sat 93%. Denies any history of asthma or COPD. Is not and was never a smoker. - History of Current Complaint Chief Complaint: UCRespiratory Stated Complaint: THROAT,COUGH,HEAVY CHEST Time Seen by Provider: 02/03/18 18:11 Hx Obtained From: Patient Onset/Duration: Gradual Onset, Lasting Weeks, Still Present Timing: Constant Severity Initially: Moderate Severity Currently: Moderate Pain Intensity: 0 Pain Scale Used: 0-10 Numeric Character: Cough: Nonproductive Aggravating Factors: Exertion, Deep Breaths Alleviating Factors: Nothing Associated Signs And Symptoms: Positive: Dyspnea, Wheezing, Nasal Congestion - Allergies/Home Medications Allergies/Adverse Reactions: Allergies Allergy/AdvReac Type Severity Reaction Status Date / Time No Known Allergies Allergy Verified 05/04/13 08:42 Home Medications: Home Medications Atorvastatin* [Lipitor 10 MG*] 1 tab PO 1700 02/03/18 [History Confirmed ] PMH/Surg Hx/FS Hx/Imm Hx Endocrine History: Hypothyroidism, Dyslipidemia Cardiovascular History: Hypertension - Surgical History Surgical History: Yes Surgery Procedure, Year, and Place: LOWER BACK SX @ [facility] - Family History Known Family History: Positive: Hypertension - Social History Alcohol Use: None Substance Use Type: None Smoking Status (MU): Never Smoked Tobacco - Immunization History Most Recent Influenza Vaccination: not this season Review of Systems Constitutional: Fatigue ENT: Nasal Discharge Respiratory: Shortness Of Breath, Cough Cardiovascular: Negative Gastrointestinal: Negative Neurological: Headache All Other Systems Reviewed And Are Negative: Yes Physical Exam Triage Information Reviewed: Yes Appearance: Well-Appearing, No Pain Distress, Well-Nourished Vital Signs: Initial Vital Signs Temp 99.4 F 02/03/18 18:07 Pulse 115 02/03/18 18:07 Resp 23 02/03/18 18:07 BP 128/69 02/03/18 18:07 Pulse Ox 93 02/03/18 18:07 Vital Signs Reviewed: Yes Eyes: Positive: Conjunctiva Clear ENT: Positive: Hearing grossly normal, Pharynx normal, TMs normal Neck: Positive: Supple, Nontender, No Lymphadenopathy Respiratory: Positive: No respiratory distress, No accessory muscle use, Decreased breath sounds, Wheezing - DIFFUSE EXPIRATORY WHEEZE, FINE RALES BILAT BASES Cardiovascular: Positive: Tachycardia Abdomen Description: Positive: Soft Musculoskeletal: Positive: No Edema Neurological: Positive: Alert Psychological: Positive: Age Appropriate Behavior Skin: Negative: rashes Diagnostic Evaluation - Laboratory O2 Sat by Pulse Oximetry: 93 - Radiology Radiology Interpretation Completed By: Radiologist Summary of Radiographic Findings: Findings of atypical pneumonia with possible subtle consolidation, scarring, or. atelectasis left midlung. Re-Evaluation - Re-Evaluation First Eval Re-Evaluation Time: 19:35 - FEELS BETTER AFTER 60MG PREDNISONE AND NEB TX Change: Improved Respiratory Course/Dx - Differential Dx/Diagnosis Provider Diagnoses: PNEUMONIA LEFT MID-LUNG Discharge - Sign-Out/Discharge Documenting (check all that apply): Patient Departure All imaging exams completed and their final reports reviewed: Yes - Discharge Plan Condition: Stable Disposition: HOME Prescriptions: Codeine Phosphate/Guaifenesin [Codeine-Guaifen 10-100 mg/5 ml] 5 - 10 ml PO Q6H PRN #150 ml MDD 40ML PRN Reason: Cough Doxycycline Monohydrate 1 cap PO BID #19 cap predniSONE TAB* [Deltasone TAB*] 50 mg PO DAILY #4 tab Patient Education Materials: Pneumonia (ED) Referrals: Ramon Rico MD [Primary Care Provider] - If Needed () Additional Instructions: CHEST XRAY SHOWS A POSSIBLE PNEUMONIA. WILL TREAT WITH DOXYCYCLINE TWICE DAILY. TAKE FOR THE FULL 10 DAYS. PREDNISONE TO HELP WITH AIRWAY INFLAMMATION. COUGH MEDICINE NEEDED. YOU SHOULD START TO FEEL BETTER WITHIN 2-3 DAYS. IF YOU DO NOT FEEL YOU ARE IMPROVING EXPECTED FOLLOW-UP WITH YOUR PCP FOR RE- EVALUATION. YOUR OXYGEN LEVEL WAS 97% TODAY AT DISCHARGE. YOU RECEIVED 60MG PREDNISONE, ALBUTEROL/IPRATROPIUM NEBULIZER AND YOUR FIRST DOSE OF DOXY HERE IN THE UC. BE SURE TO SEE YOUR PCP IN 4-6 WEEKS FOR REPEAT CHEST XRAY TO ENSURE COMPLETE RESOLUTION OF PNEUMONIA. GO TO THE ED WITHOUT FAIL IF YOU DEVELOP WORSENING SHORTNESS OF BREATH, FEVER, NAUSEA, DIZZINESS, CHEST PAIN OR ANY OTHER CONCERNING SYMPTOMS. USE YOUR INCENTIVE SPIROMETER 3 TIMES DAILY. - Billing Disposition and Condition Condition: STABLE Disposition: Home
--- NOTE | 2018-02-03 19:32 | RAD ---
EXAM: XR Chest, 2 Views EXAM DATE/TIME: 02/03/2018 6:44 PM CLINICAL HISTORY: 62 years old, female; Signs and symptoms; Dyspnea; Additional info: Cough, SOB TECHNIQUE: XR of the chest, 2 views. COMPARISON: No relevant prior studies available. FINDINGS: Lungs: Very subtle airspace opacity identified within the left midlung possibly summation artifact. Mild reticulation of the lung bases. Pleural space: Normal. No pleural effusion. No pneumothorax. Heart/Mediastinum: Normal. No cardiomegaly. Vasculature: The aorta demonstrates mild atherosclerotic calcification. Bones/joints: The thoracic spine demonstrates mild degenerative changes at multiple levels. Mild bilateral shoulder primary osteoarthritis. IMPRESSION: Findings of atypical pneumonia with possible subtle consolidation, scarring, or atelectasis left midlung. Correlation with prior studies recommended. If none available, repeat chest radiographs after treatment completion recommended. To contact [facility] with a general question: [facility] - [phone] For direct physician to physician contact: Physician Hotline - [phone] [facility] ([facility] Facility ID #[id number])
[2018-02-03] MEDS ORDERED: DOXYcycline CAP(*) 100 MG PO ONE (19:40)
[2018-02-03] MEDS ORDERED: guaiFENesin/CODIEN 100MG-10MG* 5 ML UDC PO ONE (19:40)
[2018-02-03 19:58] VITALS: BP 129/73
== END 2018-02-03 20:03 | disposition home or self-care (01) ==
LOC: UCCORT 17:57
DX: J18.9 Pneumonia, unspecified organism (principal); E78.5 Hyperlipidemia, unspecified; E03.9 Hypothyroidism, unspecified; I10 Essential (primary) hypertension
CPT/HCPCS: 71046; 99213; A9270-GY; G0463; J7512